=== PATIENT | male | born 1970 | race Caucasian/White ===

== ENCOUNTER 2019-06-28 14:44 | Emergency (ER) | payer BC ==
[~2019-06-28] VITALS: Ht 188 cm; Wt 127.0 kg
[2019-06-28] MEDS ORDERED: VITAMIN D5000 UNIT PO (14:58)
[2019-06-28] MEDS ORDERED: CO-ENZYME Q101 EACH PO (14:58)
[2019-06-28] MEDS ORDERED: ALOE VERA25 MG PO (14:59)
[2019-06-28] MEDS ORDERED: FISH OIL CONCE1 EAC1 PO (14:59)
[2019-06-28] MEDS ORDERED: VITAMIN B122500 MC1 PO (14:59)
[2019-06-28] MEDS ORDERED: FIBER GUMMIES1 EACH PO (15:00)
[2019-06-28] MEDS ORDERED: MULTIVITAMINS1 EAC7 PO (15:00)
== END 2019-06-28 16:12 | disposition home or self-care (01) ==
LOC: ED 14:44
PROC: 0YQQXZZ Repair Left 1st Toe, External Approach (ICD-10-PCS; principal; 2019-06-28)
DX: S91.112A Laceration without foreign body of left great toe without damage to nail, initial encounter (principal); Z88.6 Allergy status to analgesic agent; Z88.5 Allergy status to narcotic agent; Z91.048 Other nonmedicinal substance allergy status; W25.XXXA Contact with sharp glass, initial encounter
CPT/HCPCS: 12002; 99282-25